=== PATIENT | female | born 2000 ===

== ENCOUNTER 2020-04-26 14:19 | Outpatient (CLI) | payer MEDICAID ==
[2020-04-26 14:41] VITALS: BP 111/67
[2020-04-26] MEDS ORDERED: LACTATED RINGERS 1,000 ML IV ONE (14:57)
[2020-04-26] MEDS ORDERED: BETAMET ACET/BETAMET NA PH 6 MG/ML INJ 5 ML MDV IM SCH (18:00)
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
[2020-04-26 19:31] LABS: Bacteria,Urine 1+ /HPF (Negative); Bilirubin,Urine NEG (Negative); Blood,Urine NEG (Negative); Mucus,Urine FEW /HPF; Protein,Urine <15 mg/dL mg/dL (Negative); Urobilinogen,Urine < 2.0 mg/dL (<2.0); WBC,Urine < 1.0 /HPF (0.0-6.0)
[2020-04-26 19:33] LABS: Amphetamine Screen,Urine PRESUMPTIVE NEGATIVE; Benzodiazepines Screen,Urine PRESUMPTIVE NEGATIVE; Cannabinoid Screen,Urine PRESUMPTIVE NEGATIVE; Cocaine Screen,Urine PRESUMPTIVE NEGATIVE; Methadone Screen,Urine PRESUMPTIVE NEGATIVE; Opiate Screen,Urine PRESUMPTIVE NEGATIVE
[2020-04-26 20:18] LABS: Color,Urine Straw (Yellow)
== END 2020-04-26 21:50 | disposition home or self-care (01) ==
LOC: TRG 14:19 → APU 14:20 → TRG 21:50
PROVIDERS: ATTEND Obstetrics & Gynecology
DX: O26.893 Other specified pregnancy related conditions, third trimester (principal); R10.9 Unspecified abdominal pain; M25.512 Pain in left shoulder; M25.532 Pain in left wrist; O47.03 False labor before 37 completed weeks of gestation, third trimester; Z3A.35 35 weeks gestation of pregnancy; V49.69XA Unspecified car occupant injured in collision with other motor vehicles in traffic accident, initial encounter; Y93.89 Activity, other specified; Y92.89 Other specified places as the place of occurrence of the external cause; Y99.8 Other external cause status
CPT/HCPCS: 59025; 76815; 76819; 80307; 81001; 96360; 96372; J0702; J7120

== ENCOUNTER 2020-04-27 17:41 | Outpatient (CLI) | payer MEDICAID ==
[2020-04-27] MEDS ORDERED: BETAMET ACET/BETAMET NA PH 6 MG/ML INJ 5 ML MDV IM ONE (17:55)
[2020-04-27 18:16] VITALS: BP 110/56
== END 2020-04-27 18:17 | disposition home or self-care (01) ==
LOC: TRG 17:41 → APU 17:43 → TRG 18:17
PROVIDERS: ATTEND Obstetrics & Gynecology
DX: O47.03 False labor before 37 completed weeks of gestation, third trimester (principal); Z3A.35 35 weeks gestation of pregnancy
CPT/HCPCS: 59025; 96372; J0702

== ENCOUNTER 2020-05-28 20:26 | Inpatient (IN) | payer MEDICAID ==
[2020-05-28] MEDS ORDERED: BUTORPHANOL 2 MG/1 ML INJ IV PRN (22:54)
[2020-05-28] MEDS ORDERED: ePHEDrine SULFATE 50 MG/1 ML INJ IV PRN (22:54)
[2020-05-28] MEDS ORDERED: TERBUTALINE 1 MG/1 ML INJ SUB-Q PRN (22:54)
[2020-05-28] MEDS ORDERED: LIDOCAINE (2%) 20 MG/1 ML VIAL 20 ML MDV INFILTRATI ONE (22:54)
[2020-05-28] MEDS ORDERED: MINERAL OIL 30 ML ORAL LIQD PO PRN (22:54)
[2020-05-28] MEDS ORDERED: ONDANSETRON 4 MG/2 ML INJ IV PRN (22:54)
[2020-05-28] MEDS ORDERED: OXYTOCIN DRIP 30 UNITS/500 ML BAG IV SCH (23:00)
[2020-05-28] MEDS ORDERED: LACTATED RINGERS 1,000 ML IV SCH (23:00)
[2020-05-29 01:19] LABS: Hematocrit 32.2 % (30.3-42.9); Hemoglobin 10.8 gm/dl (10.1-14.3); Mean Corpuscular HGB Conc 33 % (30-34); Mean Corpuscular Volume 86 fl (79-97); Platelet Count 227 K/mm3 (140-440); Red Blood Count 3.76 M/mm3 (3.65-5.03); Red Cell Distribution Width 14.2 % (13.2-15.2)
[2020-05-29] MEDS ORDERED: ACETAMINOPHEN 500 MG TAB PO ONE (01:30)
--- NOTE | 2020-05-29 01:56 | History and Physical Report ---
History of Present Illness Date of examination: 05/29/20 Date of admission: 05/28/20 23:55 Chief complaint: labor pains History of present illness: Early entry to care at 7 3/7 weeks to [facility]. course complicated by UTI (treated with Macrobid). Past History Past Medical History: other (anemia; anxiety (not on any meds)) Past Surgical History: no surgical history Family/Genetic History: none Social history: no significant social history - Obstetrical History Expected Date of Delivery: 05/31/20 Actual Gestation: 39 Week(s) 5 Day(s) : 1 Para: 0 Medications and Allergies Allergies Allergy/AdvReac Type Severity Reaction Status Date / Time No Known Allergies Allergy Verified 04/26/20 14:57 Active Meds: Active Medications Butorphanol Tartrate (Stadol) 2 mg IV Q2H PRN PRN Reason: Pain , Severe (7-10) Ephedrine Sulfate (Ephedrine Sulfate) 10 mg IV Q2M PRN PRN Reason: Hypotension Lactated Ringer's (Lactated Ringers) 1,000 mls @ 125 mls/hr IV DIRECT HI Last Admin: 05/29/20 00:45 Dose: 125 mls/hr Documented by: Oxytocin/Sodium Chloride (Pitocin/Ns 30 Unit/500ml) 30 units in 500 mls @ 40 mls/hr IV TITR HI; Protocol Mineral Oil (Mineral Oil) 30 ml PO QHS PRN PRN Reason: Constipation Ondansetron HCl (Zofran) 4 mg IV Q8H PRN PRN Reason: Nausea And Vomiting Terbutaline Sulfate (Brethine) 0.25 mg SUB-Q ONCE PRN PRN Reason: Hyperstimulation/Hypertonicity Review of Systems All systems: negative - Vital Signs Vital signs: Vital Signs Pulse BP Pulse Ox 111 H 112/66 96 05/28/20 21:06 05/28/20 21:06 05/28/20 21:06 Temp Pulse Resp BP Pulse Ox 100.9 F H 107 H 16 119/57 99 05/29/20 01:11 05/29/20 01:49 05/29/20 01:11 05/29/20 01:11 05/29/20 01:49 - Physical Exam Breasts: Positive: normal Cardiovascular: Regular rate Lungs: Positive: Clear to auscultation, Normal air movement Abdomen: Positive: normal appearance, soft Genitourinary (Female): Positive: normal external genitalia, normal perenium Vagina: Positive: normal moisture Uterus: Positive: enlarged Anus/Rectum: Positive: normal perianal skin Extremities: Positive: normal - Obstetrical FHR: category 1 Uterine Contraction Monitor Mode: External Cervical Dilatation: 7 (Moderate amount of thin meconium stained fluid upon AROM at 0148) Cervical Effacement Percentage: 90 station: -2 Uterine Contraction Frequency (min): 1-2 Uterine Contraction Duration: 60 Uterine Contraction Pattern: Regular Uterine Tone Measurement Phase: Resting Uterine Contraction Intensity: Moderate Results Result Diagrams: 05/29/20 00:35 All other labs normal. Assessment and Plan A: IUP at 39 5/7 weeks Category I tracing Active Labor GBS negative P: Admit to L&D per routine orders AROM
[2020-05-29] MEDS ORDERED: diphenhydrAMINE 50 MG/ML VIAL IV PRN (02:30)
[2020-05-29] MEDS ORDERED: ONDANSETRON 4 MG/2 ML INJ IV PRN ×2 (02:30→10:30)
[2020-05-29] MEDS ORDERED: NalbUPHINE 10 MG/1 ML INJ IV PRN (02:30)
[2020-05-29] MEDS ORDERED: NALOXONE 2 MG/2 ML INJ IV PRN (02:30)
--- NOTE | 2020-05-29 02:54 | Anesthesia Consultation ---
Anesthesia Consult and Med Hx Date of service: 05/29/20 - Airway Anesthetic Teeth Evaluation: Good ROM Head & Neck: Adequate Mental/Hyoid Distance: Adequate Mallampati Class: Class II Intubation Access Assessment: Probably Good - Pulmonary Exam CTA: Yes - Cardiac Exam Cardiac Exam: RRR - Pre-Operative Health Status ASA Pre-Surgery Classification: ASA2 Proposed Anesthetic Plan: Epidural - Pulmonary Hx Smoking: No Hx Asthma: No Hx Sleep Apnea: No - Cardiovascular System Hx Hypertension: No Hx Heart Attack/AMI: No Hx Angina: No - Central Nervous System Hx Seizures: No Hx Psychiatric Problems: Yes (anxiety) - Gastrointestinal Hx Gastroesophageal Reflux Disease: No - Endocrine Hx Renal Disease: No Hx Insulin Dependent Diabetes: No Hx Non-Insulin Dependent Diabetes: No Hx Hypothyroidism: No Hx Hyperthyroidism: No - Hematic Hx Anemia: No Hx Sickle Cell Disease: No - Other Systems Hx Alcohol Use: No
--- NOTE | 2020-05-29 02:56 | Progress Note ---
Labor Epidural - Labor Epidural Start Time: 02:40 Stop Time: 02:49 Performed by:: MARIANN QUACH Procedure: Patient is requesting a laboring epidural for laboring pain. Patient IDed, H&P reviewed, all questions and concerns were answered, and consent was signed. Timeout was performed at bedside. Patient in sitting position. Sterile prep and drape was performed. 3ml of 1% lidocaine skin wheal at L[3]- L [4]. 18- gauge Touhy epidural needle was advanced to loss of resistance with air technique. Negative CSF negative blood. Epidural catheter advanced to [12] centimeters. [-] Aspiration [-] test dose. Sterile dressing applied. Patient tolerated procedure.
[2020-05-29] MEDS ORDERED: fentaNYL-BUPIV 2 MCG/ML-0.125% 200 MCG/100 ML BAG EPIDURAL SCH (03:00)
[2020-05-29] MEDS ORDERED: LIDOCAINE (2%) 20 MG/1 ML VIAL 20 ML MDV INFILTRATI ONE (09:38)
--- NOTE | 2020-05-29 10:15 | Procedure Note ---
OB Delivery Note - Vaginal Delivery presentation: vertex Delivery position: OA Delivery induction: none Delivery augmentation: pitocin Delivery monitor: external FHT, external uterine Route of delivery: Delivery placenta: spontaneous Delivery cord: 3 umbilical vessels Episiotomy: none Delivery laceration: 1st degree, 2nd degree, other (1st degree right labial 2nd degree left labial) Delivery repair: vicryl Anesthesia: local, epidural Delivery comments: Called to for delivery. SVE 10/100%/+1 and pt was pushing. of a viable live male infant in OA position. Spontaneous delivery of infant's head and shou lders. After delivery, was placed on moms chest for skin to skin bonding. Delayed cord clamping x 90 sec then cord was clamped x 2 and FOB was allowed to cut the cord. was given to awaiting NI nurse for an initial assess. 9/9. Spontaneous delivery of an intact placenta with CVX3. FF @ U2 with fundal massage and IV Pitocin. Exploration of tears revealed teagan labial tears which were repaired with a 2-0 Vicryl on a SH 1. EBL 200cc. FW 4203 Gms. Mom and bay left in stable condition with nurse. - A at 1 minute: 9 at 5 minutes: 9 Gender: Male (FW 4203 Gms)
[2020-05-29] MEDS ORDERED: PROMETHAZINE 25 MG RECT SUPP PR PRN (11:00)
[2020-05-29] MEDS ORDERED: diphenhydrAMINE 25 MG CAP PO PRN (11:00)
[2020-05-29] MEDS ORDERED: PROMETHAZINE 25 MG TAB PO PRN (11:00)
[2020-05-29] MEDS ORDERED: LANOLIN/ZINC/DIMETHICONE (LANSINOH) 7 GM TP PRN (11:00)
--- NOTE | 2020-05-29 12:28 | Post Anesthesia Evaluation ---
- Post Anesthesia Evaluation Patient Participated: Yes Airway Patent: Yes Stable Respiratory Function: Yes Nausea/Vomiting: No Temp > 96.8F: Yes Pain Manageable: Yes Adequeate Hydration: Yes Anesthesia Complications: No Block Receding Appropriately: Yes Patient on Ventilator: No
[2020-05-29] MEDS: IBUPROFEN 600 MG TAB PO SCH ×2 (14:24→21:49)
[2020-05-29] MEDS: WITCH HAZEL/ GLYCERIN PAD TP PRN (14:26)
[2020-05-29] MEDS ORDERED: MAGNESIUM HYDROXIDE (MOM) ORAL LIQD UDC PO PRN (22:00)
[2020-05-30 01:16] LABS: Hemoglobin 9.3 gm/dl (10.1-14.3)
[2020-05-30] MEDS: IBUPROFEN 600 MG TAB PO SCH ×3 (03:13→17:50)
[2020-05-30] MEDS: BENZOCAINE/MENTHOL 20/0.5% TOP SPRAY 56 GM TP PRN ×2 (03:15→18:00)
[2020-05-30] MEDS ORDERED: DIPHtheria,PERTUSSIS(ACELL),TETANUS VACCINE/PF 0.5 ML VIAL IM ONE (06:00)
--- NOTE | 2020-05-30 16:04 | Progress Note ---
Assessment and Plan A: day 1 S/P . Anemia. Coronavirus positive with cough. P: Supplement with iron. Chest x-ray. ID consult. Subjective - Subjective Date of service: 05/30/20 Principal diagnosis: day 1 S/P ; coronavirus positive Interval history: Complains of cough. Reports fever several days ago. Patient reports: appetite normal, voiding normally, pain well controlled, flatus, ambulating normally, no dizzy ambulation, no nauseated : doing well Objective - Vital Signs Latest vital signs: Vital Signs Temp Pulse Resp BP Pulse Ox 05/30/20 12:23 18 05/30/20 07:34 97.6 F 65 18 90/52 96 05/30/20 00:38 97.9 F 70 18 102/60 97 05/29/20 20:46 98.0 F 91 H 20 100/57 96 05/29/20 16:37 97.7 F 92 H 20 100/58 97 Intake and Output 05/30/20 05/30/20 05/30/20 07:59 15:59 23:59 Intake Total 480 360 Output Total 700 Balance -220 360 Intake: Oral 120 Intake, Free Water 480 240 Output: Urine 700 Void 700 Other: Total, Intake Amount 120 Total, Output Amount 700 # Voids Void 1 1 - Exam Abdomen: Present: normal appearance, soft. Absent: distention, tenderness, guarding, rigidity Uterus: Present: normal, firm, fundal height below umbilicus. Absent: bogginess, tenderness Extremities: Present: normal. Absent: tenderness, edema - Labs Labs: Abnormal lab results 05/29/20 05/30/20 Range/Units Unknown 00:31 Hgb 9.3 L (10.1-14.3) gm/dl Hct 28.0 L (30.3-42.9) % Coronavirus (PCR) Positive A (Negative)
--- NOTE | 2020-05-30 17:04 | XRay Report ---
CHEST 1 VIEW INDICATION / CLINICAL INFORMATION: cough, coronavirus positive. FINDINGS: SUPPORT DEVICES: None. HEART / MEDIASTINUM: No significant abnormality. LUNGS / PLEURA: No significant pulmonary or pleural abnormality. No pneumothorax. ADDITIONAL FINDINGS: No significant additional findings. IMPRESSION: 1. No acute findings. Signer Name: Walter Mendoza MD Signed: 05/30/2020 5:00 PM Workstation Name: [id number]
[2020-05-30] MEDS: WITCH HAZEL/ GLYCERIN PAD TP PRN (18:01)
[2020-05-30] MEDS: FERROUS SULFATE 325 MG TAB PO SCH (22:59)
[2020-05-31] MEDS: IBUPROFEN 600 MG TAB PO SCH ×3 (04:17→15:18)
[2020-05-31] MEDS: FERROUS SULFATE 325 MG TAB PO SCH (08:55)
--- NOTE | 2020-05-31 11:11 | Progress Note ---
Assessment and Plan A: day 2 S/P . Anemia, on oral iron supplements. Coronavirus positive with cough. P: Continue oral iron. ID to see patient. Disposition per ID. Subjective - Subjective Date of service: 05/31/20 Principal diagnosis: day 2 S/P ; coronavirus positive Interval history: Complains of cough. No fever or chills or body aches. Feeling well other than cough. CXR shows no acute findings. ID to see patient. Patient reports: appetite normal, voiding normally, pain well controlled, flatus, ambulating normally, no dizzy ambulation, no nauseated : doing well Objective - Vital Signs Latest vital signs: Vital Signs Temp Pulse Resp BP BP Pulse Ox 05/31/20 08:28 98.2 F 79 20 111/71 96 05/31/20 00:00 97.9 F 86 18 97/59 95 05/30/20 15:19 97.9 F 83 18 100/57 96 05/30/20 12:23 18 Intake and Output 05/30/20 05/31/20 05/31/20 23:59 07:59 15:59 Intake Total 960 240 Balance 960 240 Intake: Oral 600 240 Intake, Free Water 360 Other: Total, Intake Amount 120 120 # Voids Void 1 1 1 - Exam Abdomen: Present: normal appearance, soft Uterus: Present: normal, firm, fundal height below umbilicus. Absent: bogginess, tenderness Extremities: Present: normal - Labs Labs: Abnormal lab results 05/29/20 Range/Units Unknown Coronavirus (PCR) Positive A (Negative)
--- NOTE | 2020-05-31 16:30 | Consultation ---
History of Present Illness - Reason for Consult Consult date: 05/31/20 - History of Present Illness 19-year-old female currently at 39 weeks gestation presented to the hospital with labor pains. Her was complicated by UTI which was previously treated with Macrobid, without further complication. Her baby was lipid on 05/29/2020. She has been complaining of cough, and as such was tested for Covid which was positive. She complained of fevers several days ago, which is since resolved. Febrile to 100.92 days ago, afebrile since then. White count is 9.2, Covid is positive. Syphilis negative. No cultures. No antibiotics. Imaging personally reviewed: Chest x-ray: No acute findings. Review of Systems: Bold if positive, otherwise negative General: fevers, chills, rigors HEENT: visual disturbance, diplopia, eye pain Respiratory: cough, sputum, hemoptysis, shortness of breath Cardiovascular: chest pain, syncope Gastrointestinal: nausea, vomiting, diarrhea, abdominal pain Genitourinary: dysuria, hematuria, flank pain Musculoskeletal: neck pain, back pain, joint pain, edema Neurologic: headaches, seizures Hematologic: easy bruising or bleeding Endocrine: night sweats, acute weight loss Skin: rash, jaundice, redness Psychiatric: suicidal, homicidal ideation Past History Social history: no significant social history Medications and Allergies Allergies Allergy/AdvReac Type Severity Reaction Status Date / Time No Known Allergies Allergy Verified 04/26/20 14:57 Active Meds: Active Medications Benzocaine/Menthol (Benzocaine/Menthol 20/0.5% Top [place]arlyle 56 Gm) 1 spray TP TID PRN PRN Reason: Skin Irritation Last Admin: 05/30/20 18:00 Dose: 1 spray Documented by: Bisacodyl (Bisacodyl 10 Mg Rect Supp) 10 mg MI BID PRN PRN Reason: Constipation Diphenhydramine HCl (Diphenhydramine 50 Mg/Ml Vial) 12.5 mg IV Q2H PRN PRN Reason: Itching Diphenhydramine HCl (Diphenhydramine 25 Mg Cap) 25 mg PO Q6H PRN PRN Reason: Itching Ephedrine Sulfate (Ephedrine Sulfate) 10 mg IV Q2M PRN PRN Reason: Hypotension Last Admin: 05/29/20 03:13 Dose: 10 mg Documented by: Ferrous Sulfate (Ferrous Sulfate 325 Mg Tab) 325 mg PO BID HI Last Admin: 05/31/20 08:55 Dose: 325 mg Documented by: Lactated Ringer's (Lactated Ringers) 1,000 mls @ 125 mls/hr IV DIRECT HI Last Admin: 05/29/20 00:45 Dose: 125 mls/hr Documented by: Oxytocin/Sodium Chloride (Pitocin/Ns 30 Unit/500ml) 30 units in 500 mls @ 40 mls/hr IV TITR HI; Protocol Last Admin: 05/29/20 03:40 Dose: 2 ml/hr, 2 mls/hr Documented by: Fentanyl/Bupivacaine/Sodium Chlor (Fentanyl-Bupiv 2 Mcg/Ml-0.125%) 200 mcg in 100 mls @ 12 mls/hr EPIDURAL TITR HI; Protocol Last Infusion: 05/29/20 08:35 Dose: 0 mls/hr Documented by: Ibuprofen (Ibuprofen 600 Mg Tab) 600 mg PO Q6H HI Last Admin: 05/31/20 15:18 Dose: 600 mg Documented by: Magnesium Hydroxide (Magnesium Hydroxide (Mom) Oral Liqd Udc) 30 ml PO HS PRN PRN Reason: Constipation Last Admin: 05/30/20 22:59 Dose: 30 ml Documented by: Multi-Ingredient Ointment (Lanolin/Zinc/Dimethicone (Lansinoh) 7 Gm) 1 applic TP PRN PRN PRN Reason: Sore Nipples Nalbuphine HCl (Nalbuphine) 2.5 mg IV Q2H PRN PRN Reason: Itching Naloxone HCl (Naloxone) 0.2 mg IV Q5M PRN PRN Reason: Respiratory sedation Ondansetron HCl (Ondansetron 4 Mg/2 Ml Inj) 4 mg IV Q8H PRN PRN Reason: Nausea And Vomiting Promethazine HCl (Promethazine 25 Mg Tab) 25 mg PO Q6H PRN PRN Reason: Nausea And Vomiting Sodium Chloride (Sodium Chloride 0.9% 10 Ml Flush Syringe) 10 ml IV PRN PRN PRN Reason: flush Witch Magalis/Glycerin (Witch Magalis/ Glycerin Pad) 1 each TP PRN PRN PRN Reason: Hemorrhoid/cleansing/soothing Last Admin: 05/30/20 18:01 Dose: 1 each Documented by: Physical Examination - Physical Exam Narrative exam: Physical exam deferred due to PPE conservation strategy. Please refer to primary team's note. - Constitutional Vitals: Vital Signs Temp Pulse Resp BP Pulse Ox 98.2 F 79 14 111/71 96 05/31/20 08:28 05/31/20 08:28 05/31/20 15:18 05/31/20 08:28 05/31/20 08:28 Temperature -Last 24 Hours Temperature 98.2 F Temperature 97.9 F Results - Labs CBC & Chem 7: 05/30/20 00:31 Assessment and Plan Cultures: COVID + A/P: 19-year-old female now day 2 admitted with labor pains, found to have COVID-19 after complaining of cough and fever #COVID-19: No current symptoms, no complaints of shortness of breath, she reports that she only coughed roughly once and has since resolved. Fevers have since resolved. Given that she is asymptomatic without hypoxia, would not recommend ongoing treatment. Discussed with patient that he does develop any shortness of breath or worsening hypoxia she should return to hospital for further therapy. Encouraged her to wear a mask while breast-feeding or having close contact with child, baby was already tested and awaiting results. # day 2 Recs: -No therapy required for COVID-19 as she is asymptomatic and not hypoxic. -Recommendations as above -No infectious disease barriers to discharge. Dr. Shaw taking over Tuesday Thank you for the consult, we will continue to follow. Karishma Key MD [facility] O: [phone] F: [phone]
[2020-05-31 16:53] VITALS: BP 92/52
--- NOTE | 2020-05-31 18:55 | Discharge Summary ---
Providers - Providers Date of Admission: 05/28/20 23:55 Date of discharge: 05/31/20 Attending physician: DAPHNEY NAGEL 05/30/20 16:00 Consult to Physician [CONS] Routine Comment: Consulting Provider: ELIJAH MONTELONGO Physician Instructions: Reason For Exam: coronavirus positive, cough, Primary care physician: DAPHNEY NAGEL Hospitalization Reason for admission: active labor Delivery: Laceration: 1st degree, 2nd degree Other procedures: none complications: other (coronavirus positive) [place] baby: male Pertinent studies: Labs Hospital course: Stable hospital course Disposition: DC-30 STILL A PATIENT Plan - Provider Discharge Summary Activity: routine, no sex for 6 weeks, no heavy lifting 4 weeks, no strenuous exercise Diet: routine Instructions: routine Additional instructions: Continue taking your vitamin and iron at home. Follow up at [facility] in 4 weeks. Quarantine at home for 2-3 weeks due to coronavirus. Call your doctor immediately for: * Fever > 100.5 * Heavy vaginal bleeding ( >1 pad per hour) * Severe persistent headache * Shortness of breath * Reddened, hot, painful area to leg or breast - Follow up plan Follow up: DAPHNEY NAGEL MD [Primary Care Provider] - 06/30/20
== END 2020-05-31 22:00 | disposition home or self-care (01) | DRG 774 ==
LOC: TRG 20:26 → APU 20:54 → TRG 23:54 → LD 23:55 → OB 05-29 12:59
PROVIDERS: ADMIT Obstetrics & Gynecology; ATTEND Obstetrics & Gynecology
PROC: 10E0XZZ Delivery of Products of Conception, External Approach (ICD-10-PCS; principal; 2020-05-29)
PROC: 0KQM0ZZ Repair Perineum Muscle, Open Approach (ICD-10-PCS; 2020-05-29)
PROC: 0HQ9XZZ Repair Perineum Skin, External Approach (ICD-10-PCS; 2020-05-29)
PROC: 10907ZC Drainage of Amniotic Fluid, Therapeutic from Products of Conception, Via Natural or Artificial Opening (ICD-10-PCS; 2020-05-29)
PROC: 3E0R3BZ Introduction of Anesthetic Agent into Spinal Canal, Percutaneous Approach (ICD-10-PCS; 2020-05-29)
PROC: 00HU33Z Insertion of Infusion Device into Spinal Canal, Percutaneous Approach (ICD-10-PCS; 2020-05-29)
PROC: 3E0234Z Introduction of Serum, Toxoid and Vaccine into Muscle, Percutaneous Approach (ICD-10-PCS; 2020-05-30)
DX: O77.0 Labor and delivery complicated by meconium in amniotic fluid (principal); O98.52 Other viral diseases complicating childbirth; Z3A.39 39 weeks gestation of pregnancy; Z37.0 Single live birth; O99.344 Other mental disorders complicating childbirth; F41.9 Anxiety disorder, unspecified; O99.02 Anemia complicating childbirth; D64.9 Anemia, unspecified; U07.1 COVID-19; Z23 Encounter for immunization; O70.1 Second degree perineal laceration during delivery; O70.0 First degree perineal laceration during delivery
CPT/HCPCS: 36415; 71045; 82962; 85014; 85018; 85027; 86592; 86850; 86900; 86901; 90471; 90715; G0378; J2590; J7120; U0003